=== PATIENT | male | born 1980 | race Caucasian/White ===

== ENCOUNTER 2018-01-02 09:04 | Emergency (ER) | payer SELFPAY ==
[2018-01-02 09:16] VITALS: TEMP 97.9; BMI 35.4
--- NOTE | 2018-01-02 10:13 | PDOC ---
History of Present Illness - General Chief Complaint: Chest Pain Stated Complaint: CHEST PAIN, HEADACHE Time Seen by Provider: 01/02/18 09:59 Past History - Past Medical History Allergies/Adverse Reactions: Allergies Allergy/AdvReac Type Severity Reaction Status Date / Time No Known Allergies Allergy Verified 01/02/18 09:12 Home Medications: Ambulatory Orders NK [No Known Home Medication] 01/02/18 CVA: No COPD: No DVT: No Dementia: No - Immunization History Immunization Up to Date: Yes - Suicide/Smoking/Psychosocial Hx Smoking History: Never smoked Have you smoked in the past 12 months: No Number of Cigarettes Smoked Daily: 2 Information on smoking cessation initiated: No Hx Alcohol Use: No Drug/Substance Use Hx: No Substance Use Type: None *Physical Exam - Vital Signs Last Vital Signs Temp Pulse Resp BP Pulse Ox 97.9 F 59 L 17 132/88 99 01/02/18 09:12 01/02/18 09:12 01/02/18 09:12 01/02/18 09:12 01/02/18 09:12 Heart Score/ECG Review - History History: Slightly suspicious - Electrocardiogram EKG: Normal - Age Age: </= 46 - Risk Factors Based on the list above the patient has:: No risk factors known - Troponin Troponin: </= normal limit - Score Heart Score - Total: 0 ED Treatment Course - LABORATORY CBC & Chemistry Diagram: 01/02/18 10:19 01/02/18 10:19 Medical Decision Making - Medical Decision Making 01/02/18 10:41 PERC critera 0 at this time. *DC/Admit/Observation/Transfer Diagnosis at time of Disposition: Atypical chest pain - Discharge Dispostion Disposition: HOME Condition at time of disposition: Stable Admit: No - Referrals Referrals: Ken Sinclair MD [Staff Physician] - Remy Watson MD [Staff Physician] - - Patient Instructions Printed Discharge Instructions: DI for Atypical Chest Pain Additional Instructions: Your work up today was normal. Your EKG and chest x-ray were normal. You were prescribed Zantac. Please take this medication twice a day for the next week. Please follow up with cardiology (Dr. Watson) for further evaluation of your chest pain. Please follow up with our clinic as well (Dr. Kerns). Return to the ED if your chest pain gets worse, if you have nausea/vomiting, weakness, or any changes in your symptoms Mcbride trabajo hoy fue normal. Mcbride EKG y radiografa de trax fueron normales. Le recetaron Zantac. Por favor tome stephon medicamento dos veces al da pennie la pr xima semana. Por favor, saman un seguimiento con cardiologa (Dr. Watson) para benito mayor evaluacin de mcbride dolor en el pecho. Por favor, saman un seguimiento con nuestra clnica ford (Dr. Kerns). Regrese al departamento de emergencias si mcbride dolor de pecho empeora, si tiene n useas / vmitos, debilidad o cualquier cambio en shannan sntomas - Post Discharge Activity
[2018-01-02] MEDS ORDERED: SODIUM CHLORIDE 1,000 ML IV STA (10:14)
[2018-01-02] MEDS ORDERED: METOCLOPRAMIDE HCL INJECTION 10 MG/2 ML VIAL IVPUSH ONE (10:14)
[2018-01-02] MEDS ORDERED: ONDANSETRON 4 MG/2 ML VIAL IVPUSH ONE (10:15)
[2018-01-02] MEDS ORDERED: METOCLOPRAMIDE HCL INJECTION 10 MG/2 ML VIAL ONE (10:25)
[2018-01-02] MEDS ORDERED: ONDANSETRON 4 MG/2 ML VIAL ONE (10:26)
[2018-01-02 10:31] LABS: BASO % 0.5 % (0-2.0); EOS % 0.8 % (0-4.5); HEMATOCRIT 47.7 % (35.4-49); HEMOGLOBIN 15.7 GM/dL (11.7-16.9); LYMPH % 17.1 % (8-40); MCH 30.6 pg (25.7-33.7); MCHC 32.8 g/dl (32.0-35.9); MEAN CELL VOLUME 93.2 fl (80-96); MEAN PLT VOLUME 9.8 fl (7.5-11.1); MONO % 5.6 % (3.8-10.2); PLATELET COUNT 246 K/MM3 (134-434); RBC 5.11 M/mm3 (4.00-5.60); RDW 13.6 % (11.9-15.9); WHITE BLOOD COUNT 13.6 K/mm3 (4.0-10.0)
[2018-01-02 10:39] LABS: INR 0.97 (0.82-1.09)
--- NOTE | 2018-01-02 10:51 | PDOC ---
*Physical Exam - Vital Signs Last Vital Signs Temp Pulse Resp BP Pulse Ox 97.9 F 59 L 17 132/88 99 01/02/18 09:12 01/02/18 09:12 01/02/18 09:12 01/02/18 09:12 01/02/18 09:12 Heart Score/ECG Review #1 01/02/18 10:50 NSR 59, no std/leonides, QTC 399 msec ED Treatment Course - LABORATORY CBC & Chemistry Diagram: 01/02/18 10:19 01/02/18 10:19 - ADDITIONAL ORDERS Additional order review: Laboratory Results 01/02/18 10:19 PT with INR 11.00 INR 0.97 01/02/18 10:19 RBC 5.11 MCV 93.2 MCHC 32.8 RDW 13.6 MPV 9.8 Neutrophils % 76.0 Lymphocytes % 17.1 Monocytes % 5.6 Eosinophils % 0.8 Basophils % 0.5 - Medications Given in the ED: ED Medications Discontinued Medications Generic Name Dose Route Start Last Admin Trade Name Gil PRN Reason Stop Dose Admin Diphenhydramine HCl 12.5 mg 01/02/18 10:14 01/02/18 10:35 Benadryl Injection - IVPUSH 01/02/18 10:15 12.5 mg ONCE ONE Administration Metoclopramide HCl 10 mg 01/02/18 10:14 01/02/18 10:42 Reglan Injection - IVPUSH 01/02/18 10:15 10 mg ONCE ONE Administration Ondansetron HCl 4 mg 01/02/18 10:15 01/02/18 10:42 Zofran Injection IVPUSH 01/02/18 10:16 4 mg ONCE ONE Administration Medical Decision Making - Medical Decision Making 01/02/18 10:50 Pt seen by the Advanced Practice Provider under my direct supervision Ancillary studies reviewed I agree with plan as outlined by the Advanced Practice Provider MAURO Robles. *DC/Admit/Observation/Transfer Diagnosis at time of Disposition: Atypical chest pain - Discharge Dispostion Disposition: HOME Condition at time of disposition: Stable - Prescriptions Prescriptions: Ranitidine HCl [Zantac] 150 mg PO BID #20 tablet - Referrals Referrals: Ken Sinclair MD [Staff Physician] - Remy Watson MD [Staff Physician] - - Patient Instructions Printed Discharge Instructions: DI for Atypical Chest Pain Additional Instructions: Your work up today was normal. Your EKG and chest x-ray were normal. You were prescribed Zantac. Please take this medication twice a day for the next week. Please follow up with cardiology (Dr. Watson) for further evaluation of your chest pain. Please follow up with our clinic as well (Dr. Kerns). Return to the ED if your chest pain gets worse, if you have nausea/vomiting, weakness, or any changes in your symptoms Mcbride trabajo hoy fue normal. Mcbride EKG y radiografa de trax fueron normales. Le recetaron Zantac. Por favor tome stephon medicamento dos veces al da pennie la pr xima semana. Por favor, saman un seguimiento con cardiologa (Dr. Watson) para benito mayor evaluacin de mcbride dolor en el pecho. Por favor, saman un seguimiento con nuestra clnica tambin (Dr. Kerns). Regrese al departamento de emergencias si mcbride dolor de pecho empeora, si tiene n useas / vmitos, debilidad o cualquier cambio en shannan sntomas - Post Discharge Activity
[2018-01-02 10:52] LABS: ANION GAP 8 (8-16); BLOOD UREA NITROGEN 16 mg/dL (7-18); CALCIUM 8.3 mg/dL (8.5-10.1); CHLORIDE 108 mmol/L (98-107); CO2 24 mmol/L (21-32); GLUCOSE,RANDOM 127 mg/dL (74-106); MAGNESIUM 2.3 mg/dL (1.8-2.4); POTASSIUM 3.9 mmol/L (3.5-5.1); SODIUM 140 mmol/L (136-145)
[2018-01-02 11:03] LABS: ALK PHOS 110 U/L (45-117); BILIRUBIN,TOTAL 0.8 mg/dL (0.2-1.0); CREATININE 0.9 mg/dL (0.7-1.3); SGOT/AST 33 U/L (15-37); SGPT/ALT 72 U/L (12-78); TOT PROT 7.3 g/dl (6.4-8.2)
--- NOTE | 2018-01-02 11:46 | EKG ---
Test Reason : Blood Pressure : / mmHG Vent. Rate : 059 BPM Atrial Rate : 059 BPM P-R Int : 164 ms QRS Dur : 116 ms QT Int : 404 ms P-R-T Axes : 016 -12 034 degrees QTc Int : 399 ms SINUS BRADYCARDIA OTHERWISE NORMAL ECG NO PREVIOUS ECGS AVAILABLE Confirmed by PASCUAL AGGARWAL MD ([id number]) on 01/02/2018 11:46:29 AM Referred By: Confirmed By:PASCUAL AGGARWAL MD
[2018-01-02 12:52] VITALS: BP 102/69; PULSE 60
== END 2018-01-02 12:52 | disposition home or self-care (01) ==
LOC: JER 09:04
DX: R07.89 Other chest pain (principal)
CPT/HCPCS: 36415; 71046-TC-FY; 80053; 82550; 82553; 83735; 84443; 84484; 85025; 85610; 93005; 93010; 99285-25